=== PATIENT | female | born 1985 | race Caucasian/White ===

== ENCOUNTER 2022-03-24 12:58 | Outpatient (CLI) | payer OTHER, SELFPAY ==
--- NOTE | ~2022-03-24 | MMUS_ITS ---
EXAMINATION: MM diagnostic penny BI w verito, US breast BI limited HISTORY: Bilateral milky nipple discharge TECHNIQUE: Craniocaudal, mediolateral, and mediolateral oblique 3-D tomosynthesis images of the breas ts were performed and synthetic 2-D images were generated. CAD analysis was submitted and interpreted . High resolution limited bilateral breast ultrasound was performed. COMPARISON: None, baseline BREAST PARENCHYMAL COMPOSITION: The breasts are heterogeneously dense, which may obscure small masses . FINDINGS: MAMMOGRAPHIC FINDINGS: No suspicious mass, calcification, or architectural distortion are identified in either breast to sug gest malignancy. No mammographic correlate is identified for the reported nipple discharge. ULTRASOUND: No suspicious cystic or solid mass is identified in either breast. No sonographic correlate is identi fied for the patient's reported nipple discharge. IMPRESSION: 1. No specific mammographic or sonographic correlate is identified for the patient's reported nipple discharge. Further evaluation at this time should be based on clinical assessment. Continued follow-u p physical examination is recommended. 2. Recommend routine screening mammography beginning at age 40. BI-RADS Category 1: Negative Reviewed, dictated and finalized at location A. IMPRESSION: 1. No specific mammographic or sonographic correlate is identified for the juana ent's reported nipple discharge. Further evaluation at this time should be base d on clinical assessment. Continued follow-up physical examination is recommend ed. 2. Recommend routine screening mammography beginning at age 40. BI-RADS Category 1: Negative
== END 2022-03-24 12:59 | disposition home or self-care (01) ==
PROVIDERS: Visit Provider Family Medicine
DX: N64.52 Nipple discharge (principal); N60.11 Diffuse cystic mastopathy of right breast; N60.12 Diffuse cystic mastopathy of left breast
CPT/HCPCS: 76642; 77062; 77066; G0279